=== PATIENT | male | born 1960 | race Caucasian/White ===

== ENCOUNTER 2021-05-30 04:39 | Day surgery (SDC) | payer OTHER ==
[2021-05-23 16:07] VITALS: BMI 46.6
[2021-05-30 11:35] VITALS: BP 117/63; PULSE 75; TEMP 99
== END 2021-05-30 11:20 | disposition home or self-care (01) ==
LOC: JASU-ENDO 04:39
PROVIDERS: ATTEND Internal Medicine Gastroenterology
PROC: 0DBN8ZX Excision of Sigmoid Colon, Via Natural or Artificial Opening Endoscopic, Diagnostic (ICD-10-PCS; principal; 2021-05-30 10:00)
DX: Z12.11 Encounter for screening for malignant neoplasm of colon (principal); Z86.010 Personal history of colon polyps; K64.8 Other hemorrhoids; K57.30 Diverticulosis of large intestine without perforation or abscess without bleeding; E11.9 Type 2 diabetes mellitus without complications; Z79.84 Long term (current) use of oral hypoglycemic drugs; I10 Essential (primary) hypertension
CPT/HCPCS: 82962; 88305-TC

== ENCOUNTER 2024-08-29 14:23 | Emergency (ER) | payer OTHER ==
[2024-08-29 14:33] VITALS: BP 128/71; PULSE 112; RESP 18; TEMP 98.3; BMI 45.4
[2024-08-29] MEDS ORDERED: FAMOTIDINE 20 MG/50 ML IVPB 20 MG/50 ML MG IVPB ONE (15:30)
[2024-08-29] MEDS ORDERED: ACETAMINOPHEN INJECTION 100 ML ONE (15:30)
[2024-08-29] MEDS: SODIUM CHLORIDE 0.9% 500 ML INFUS.BAG IV ONE (15:48)
[2024-08-29] MEDS: FAMOTIDINE 20 MG/50 ML IVPB 20 MG/50 ML MG IVPB ONE (15:48)
[2024-08-29 15:58] LABS: BASO % 0.3 % (0-2.0); EOS % 0.7 % (0-4.5); HEMATOCRIT 45.9 % (35.4-49); HEMOGLOBIN 15.8 GM/dL (11.7-16.9); MCH 30.9 pg (25.7-33.7); MCHC 34.4 g/dl (32.0-35.9); MEAN CELL VOLUME 89.8 fl (80-96); MONO % 6.8 % (3.8-10.2); NEUT % 84.2 % (42.8-82.8); PLATELET COUNT 158 10^3/uL (134-434); RBC 5.12 M/mm3 (4.00-5.60); RDW 14.1 % (11.9-15.9); WHITE BLOOD COUNT 10.4 K/mm3 (4.0-10.0)
[2024-08-29 16:00] LABS: URINE APPEARANCE CLEAR; URINE BILIRUBIN NEGATIVE (NEGATIVE); URINE COLOR YELLOW; URINE GLUCOSE (UA) 3+ (NEGATIVE); URINE KETONE 1+ (NEGATIVE); URINE LEUK ESTERASE NEGATIVE (NEGATIVE); URINE NITRITE NEGATIVE (NEGATIVE); URINE PROTEIN NEGATIVE (NEGATIVE); URINE UROBILINOGEN 0.2 mg/dL (0.2-1.0)
[2024-08-29 16:06] LABS: INR 1.16 (0.83-1.09); PROTHROMBIN TIME (PATIENT) 12.6 SEC (9.7-13.0)
[2024-08-29 16:08] LABS: ACTIVATED PTT 34.1 SECONDS (25.2-36.5)
[2024-08-29] MEDS: ACETAMINOPHEN 1000 MG/100 ML BAG IVPB ONE (16:10)
[2024-08-29 16:26] LABS: POTASSIUM 4.3 mmol/L (3.5-5.1)
[2024-08-29 16:28] LABS: ALBUMIN 3.2 g/dl (3.4-5.0); CALCIUM 8.7 mg/dL (8.5-10.1); MAGNESIUM 1.8 mg/dL (1.8-2.4)
[2024-08-29 16:31] LABS: CREATININE 1.2 mg/dL (0.55-1.3)
[2024-08-29 16:32] LABS: PHOSPHOROUS 2.1 mg/dL (2.5-4.9)
[2024-08-29 16:33] LABS: BILIRUBIN,TOTAL 2.5 mg/dL (0.2-1)
[2024-08-29] MEDS ORDERED: metroNIDAZOLE 250 MG TABLET ONE (19:25)
[2024-08-29] MEDS: CIPROFLOXACIN 500 MG TABLET (RESTRICTED TO ID) PO ONE (19:39)
[2024-08-29] MEDS: metroNIDAZOLE 250 MG TABLET PO ONE (19:39)
== END 2024-08-29 19:40 | disposition home or self-care (01) ==
LOC: JER 14:23
PROC: 3E033GC Introduction of Other Therapeutic Substance into Peripheral Vein, Percutaneous Approach (ICD-10-PCS; principal; 2024-08-29)
PROC: 3E033NZ Introduction of Analgesics, Hypnotics, Sedatives into Peripheral Vein, Percutaneous Approach (ICD-10-PCS; 2024-08-29)
DX: K57.32 Diverticulitis of large intestine without perforation or abscess without bleeding (principal); R10.32 Left lower quadrant pain; R00.0 Tachycardia, unspecified
CPT/HCPCS: 36415; 74177-TC; 80053; 81003; 83690; 83735; 84100; 85025; 85610; 85730; 87086; 96365; 96375; 99285-25; J0131; Q9967